=== PATIENT | male | born 1960 | race African-American/Black ===

== ENCOUNTER 2017-04-21 18:13 | Emergency (ER) | payer OTHER ==
[~2017-04-21] VITALS: Ht 175.3 cm; Wt 70.0 kg
[2017-04-21 18:27] VITALS: BP 105/69
== END 2017-04-21 20:30 | disposition left against medical advice (07) ==
LOC: ER 18:13
DX: F10.129 Alcohol abuse with intoxication, unspecified (principal); Z53.21 Procedure and treatment not carried out due to patient leaving prior to being seen by health care provider

== ENCOUNTER 2017-08-15 08:15 | Emergency (ER) | payer OTHER ==
[~2017-08-15] VITALS: Ht 180.3 cm; Wt 86.0 kg
[~2017-08-15 08:15] MED LIST: AMLO10TA80 PO; CLOP75TA16 PO; HYDR25TA PO; LIP40 PO; LOSA100T14 PO
[2017-08-15] MEDS ORDERED: LORAZEPAM 1MG TABLET PO ONE (08:30)
[2017-08-15] MEDS ORDERED: LOSARTAN POTASSIUM 100 MG TABLET PO ONE (08:30)
[2017-08-15] MEDS ORDERED: AMLODIPINE 10MG TABLET PO ONE ×2 (08:30→15:15)
[2017-08-15] MEDS ORDERED: OLANZAPINE 10MG TABLET ODT PO ONE (08:30)
[2017-08-15 09:00] LABS: BASOPHILS % 0.8 % (0.0-2.0); EOSINOPHILS % 0.5 % (0.0-5.0); HEMATOCRIT. 41.2 % (42.0-52.0); HEMOGLOBIN. 14.5 g/dL (14.0-18.0); LYMPHOCYTES % 18.7 % (20.0-50.0); MEAN CORPUSCULAR HEMOGLOBIN 33.5 pg (28.0-32.0); MEAN CORPUSCULAR VOLUME 95.2 fL (80.0-94.0); MEAN PLATELET VOLUME 6.5 fl (7.4-10.4); MONOCYTES % 8.5 % (2.0-8.0); NEUTROPHILS % 71.5 % (40.0-76.0); PLATELET 253 x1000/uL (130-400); RED BLOOD CELL COUNT 4.33 mill/uL (4.7-6.1)
[2017-08-15 09:05] LABS: CHLORIDE 106 mEq/L (98-107)
[2017-08-15 09:08] LABS: ETHANOL BLOOD 25 mg/dL
[2017-08-15 09:49] LABS: *BARBITURATES SCREEN URINE NEGATIVE (NEGATIVE); *BENZODIAZEPINES SCREEN URINE NEGATIVE (NEGATIVE); *COCAINE SCREEN URINE NEGATIVE (NEGATIVE)
[2017-08-15 09:50] LABS: *AMPHETAMINES SCREEN URINE PRESUMTIVE POSITIVE (NEGATIVE); CANNABINOID URINE SCREEN PRESUMTIVE POSITIVE (NEGATIVE); METHADONE URINE SCREEN NEGATIVE (NEGATIVE); OPIATES URINE SCREEN NEGATIVE (NEGATIVE); PHENCYCLIDINE URINE SCREEN NEGATIVE (NEGATIVE)
[2017-08-16] MEDS ORDERED: OLANZAPINE 10 MG/VIAL IM ONE (17:15)
[2017-08-16] MEDS ORDERED: ZIPRASIDONE MESYLATE 20MG/VIAL IM ONE (20:30)
[2017-08-17] MEDS ORDERED: HYDROCHLOROTHIAZIDE 25MG TABLET PO SCH (00:30)
[2017-08-17] MEDS ORDERED: LOSARTAN POTASSIUM 100 MG TABLET PO SCH (00:30)
[2017-08-17] MEDS ORDERED: AMLODIPINE 10MG TABLET PO SCH (00:30)
[2017-08-17] MEDS ORDERED: CLOPIDOGREL 75MG TABLET PO SCH (00:30)
[2017-08-17] MEDS ORDERED: ATORVASTATIN CALCIUM 40MG TABLET PO SCH (21:00)
[2017-08-18 09:41] VITALS: BP 133/90
== END 2017-08-18 11:09 | disposition home or self-care (01) ==
LOC: ER 08:32
DX: F20.9 Schizophrenia, unspecified (principal); I10 Essential (primary) hypertension; F15.10 Other stimulant abuse, uncomplicated; R45.850 Homicidal ideations; F14.10 Cocaine abuse, uncomplicated; F12.10 Cannabis abuse, uncomplicated; Z91.14 Patient's other noncompliance with medication regimen; Z86.73 Personal history of transient ischemic attack (TIA), and cerebral infarction without residual deficits
CPT/HCPCS: 36415; 80048; 80305; 80307; 80329; 85025; 96372; 99285; G0482; J3490; J3486

== ENCOUNTER 2017-11-07 01:30 | Emergency (ER) | payer OTHER ==
[~2017-11-07] VITALS: Ht 172.7 cm; Wt 79.0 kg
[2017-11-07] MEDS: CLOPIDOGREL 75MG TABLET PO SCH (03:00)
[2017-11-07 03:35] LABS: BASOPHILS % 0.9 % (0.0-2.0); EOSINOPHILS % 0.6 % (0.0-5.0); HEMATOCRIT. 45.6 % (42.0-52.0); HEMOGLOBIN. 15.6 g/dL (14.0-18.0); LYMPHOCYTES % 28.7 % (20.0-50.0); MEAN CORPUSCULAR HEMOGLOBIN 32.5 pg (28.0-32.0); MEAN CORPUSCULAR VOLUME 94.8 fL (80.0-94.0); MEAN PLATELET VOLUME 7.4 fl (7.4-10.4); MONOCYTES % 6.1 % (2.0-8.0); NEUTROPHILS % 63.7 % (40.0-76.0); PLATELET 230 x1000/uL (130-400); RED BLOOD CELL COUNT 4.81 mill/uL (4.7-6.1); RED CELL DISTRIBUTION WIDTH 13.5 % (11.6-14.6)
[2017-11-07 03:41] LABS: CHLORIDE 105 mEq/L (98-107); PROTHROMBIN TIME 10.8 sec (9.4-11.6)
[2017-11-07 03:44] LABS: ETHANOL BLOOD 32 mg/dL
[2017-11-07] MEDS ORDERED: SODIUM CHLORIDE 0.9% 1000ML BAG (SEPSIS BOLUS) IV ONE (05:15)
[2017-11-07] MEDS ORDERED: LABETALOL HCL 20MG/4ML CARPUJECT IV ONE (05:15)
[2017-11-07] MEDS ORDERED: LORAZEPAM 2MG/ML CPJ IV ONE (05:30)
[2017-11-07 05:59] LABS: CLARITY URINE CLEAR (CLEAR); COLOR URINE YELLOW (YELLOW); KETONES URINE NEGATIVE (NEGATIVE); LEUKOCYTE ESTERASE URINE NEGATIVE (NEGATIVE); NITRITE URINE NEGATIVE (NEGATIVE); OCCULT BLOOD URINE TRACE (NEGATIVE); PROTEIN URINE 2+ (NEGATIVE); SPECIFIC GRAVITY URINE 1.017 (1.005-1.030); UROBILINOGEN URINE 0.2 E.U./dL (0.2-1.0)
[2017-11-07 06:20] LABS: *AMPHETAMINES SCREEN URINE PRESUMTIVE POSITIVE (NEGATIVE); *BARBITURATES SCREEN URINE NEGATIVE (NEGATIVE); *BENZODIAZEPINES SCREEN URINE NEGATIVE (NEGATIVE); *COCAINE SCREEN URINE PRESUMTIVE POSITIVE (NEGATIVE); METHADONE URINE SCREEN NEGATIVE (NEGATIVE); OPIATES URINE SCREEN NEGATIVE (NEGATIVE)
[2017-11-07 06:21] LABS: CANNABINOID URINE SCREEN PRESUMTIVE POSITIVE (NEGATIVE); PHENCYCLIDINE URINE SCREEN NEGATIVE (NEGATIVE)
[2017-11-07] MEDS: AMLODIPINE 10MG TABLET PO SCH (06:35)
[2017-11-07] MEDS: HYDROCHLOROTHIAZIDE 25MG TABLET PO SCH (06:35)
[2017-11-07] MEDS: LOSARTAN POTASSIUM 100 MG TABLET PO SCH (07:31)
[2017-11-07] MEDS ORDERED: OLANZAPINE 5MG TABLET PO STA (10:31)
[2017-11-08] MEDS: CLOPIDOGREL 75MG TABLET PO SCH (10:02)
[2017-11-08] MEDS: AMLODIPINE 10MG TABLET PO SCH (10:02)
[2017-11-08] MEDS: LOSARTAN POTASSIUM 100 MG TABLET PO SCH (10:06)
[2017-11-08] MEDS: HYDROCHLOROTHIAZIDE 25MG TABLET PO SCH (10:06)
[2017-11-08 10:30] VITALS: BP 112/62
== END 2017-11-08 12:13 | disposition home or self-care (01) ==
LOC: ER 01:30
DX: I16.0 Hypertensive urgency (principal); F14.10 Cocaine abuse, uncomplicated; F15.10 Other stimulant abuse, uncomplicated; F19.10 Other psychoactive substance abuse, uncomplicated; R45.851 Suicidal ideations; F10.10 Alcohol abuse, uncomplicated; F17.200 Nicotine dependence, unspecified, uncomplicated; I10 Essential (primary) hypertension; Y90.1 Blood alcohol level of 20-39 mg/100 ml; Z86.73 Personal history of transient ischemic attack (TIA), and cerebral infarction without residual deficits; Z91.14 Patient's other noncompliance with medication regimen
CPT/HCPCS: 36415; 80053; 80305; 80307; 80329; 81003; 85025; 85610; 93005; 99285; G0482; J2060; J7030; J7040; Z7610

== ENCOUNTER 2018-05-20 09:12 | Emergency (ER) | payer OTHER ==
[~2018-05-20] VITALS: Ht 177.8 cm; Wt 120.0 kg
[2018-05-20] MEDS ORDERED: SODIUM CHLORIDE 0.9% 1,000 ML IV ONE (10:14)
[2018-05-20] MEDS ORDERED: NITROGLYCERIN 0.4MG TABLET SL SL PRN (10:15)
[2018-05-20] MEDS ORDERED: ASPIRIN 81MG TABLET PO ONE (10:15)
[2018-05-20] MEDS ORDERED: LORAZEPAM 2MG/ML CPJ IV ONE (10:15)
[2018-05-20 10:46] LABS: *AMPHETAMINES SCREEN URINE PRESUMTIVE POSITIVE (NEGATIVE); *BARBITURATES SCREEN URINE NEGATIVE (NEGATIVE); *BENZODIAZEPINES SCREEN URINE NEGATIVE (NEGATIVE); *COCAINE SCREEN URINE NEGATIVE (NEGATIVE); METHADONE URINE SCREEN NEGATIVE (NEGATIVE); OPIATES URINE SCREEN NEGATIVE (NEGATIVE)
[2018-05-20 10:47] LABS: CANNABINOID URINE SCREEN PRESUMTIVE POSITIVE (NEGATIVE); PHENCYCLIDINE URINE SCREEN NEGATIVE (NEGATIVE)
[2018-05-20 11:57] LABS: BASOPHILS % 0.6 % (0.0-2.0); EOSINOPHILS % 0.1 % (0.0-5.0); HEMATOCRIT. 44.1 % (42.0-52.0); HEMOGLOBIN. 15.2 g/dL (14.0-18.0); LYMPHOCYTES % 19.2 % (20.0-50.0); MEAN CORPUSCULAR HEMOGLOBIN 33.1 pg (28.0-32.0); MEAN CORPUSCULAR VOLUME 96.1 fL (80.0-94.0); MEAN PLATELET VOLUME 7.8 fl (7.4-10.4); MONOCYTES % 10.2 % (2.0-8.0); NEUTROPHILS % 69.9 % (40.0-76.0); PLATELET 193 x1000/uL (130-400); RED BLOOD CELL COUNT 4.59 mill/uL (4.7-6.1); RED CELL DISTRIBUTION WIDTH 14.7 % (11.6-14.6)
[2018-05-20 12:01] LABS: CHLORIDE 98 mEq/L (98-107)
[2018-05-20 12:05] LABS: ETHANOL BLOOD < 10 mg/dL; PARTIAL THROMBOPLASTIN TIME 29.6 sec (23.4-31.0); PROTHROMBIN TIME 10.1 sec (9.1-11.1)
[2018-05-20] MEDS ORDERED: POTASSIUM CHLORIDE 20MEQ TABLET SR PO ONE (12:30)
[2018-05-20 17:21] VITALS: BP 152/111
== END 2018-05-20 17:35 | disposition short-term general hospital (02) ==
LOC: ER 09:12 → CANBEDREQ 20:45
DX: R07.9 Chest pain, unspecified (principal); E87.6 Hypokalemia; T40.7X5A Adverse effect of cannabis (derivatives), initial encounter; Y92.9 Unspecified place or not applicable; F17.200 Nicotine dependence, unspecified, uncomplicated; I10 Essential (primary) hypertension; Z86.73 Personal history of transient ischemic attack (TIA), and cerebral infarction without residual deficits
CPT/HCPCS: 36415; 71045; 80053; 80305; 83735; 83880; 84484; 85025; 85610; 85730; 93005; 96374; 99285; G0482; J2060; J7030

== ENCOUNTER 2018-08-27 17:32 | Emergency (ER) | payer OTHER ==
[~2018-08-27] VITALS: Ht 175.3 cm; Wt 120.0 kg
[2018-08-27 18:28] LABS: BASOPHILS % 0.9 % (0.0-2.0); EOSINOPHILS % 0.3 % (0.0-5.0); HEMATOCRIT. 42.7 % (42.0-52.0); HEMOGLOBIN. 14.8 g/dL (14.0-18.0); LYMPHOCYTES % 26.7 % (20.0-50.0); MEAN CORPUSCULAR HEMOGLOBIN 33.3 pg (28.0-32.0); MEAN CORPUSCULAR VOLUME 96.2 fL (80.0-94.0); MEAN PLATELET VOLUME 6.3 fl (7.4-10.4); MONOCYTES % 8.6 % (2.0-8.0); NEUTROPHILS % 63.5 % (40.0-76.0); PLATELET 265 x1000/uL (130-400); RED BLOOD CELL COUNT 4.44 mill/uL (4.7-6.1)
[2018-08-27 18:34] LABS: CHLORIDE 107 mEq/L (98-107)
[2018-08-27 18:38] LABS: ETHANOL BLOOD 91 mg/dL
[2018-08-27 19:21] LABS: CLARITY URINE CLEAR (CLEAR); COLOR URINE YELLOW (YELLOW); KETONES URINE NEGATIVE (NEGATIVE); LEUKOCYTE ESTERASE URINE NEGATIVE (NEGATIVE); NITRITE URINE NEGATIVE (NEGATIVE); OCCULT BLOOD URINE 1+ (NEGATIVE); PROTEIN URINE NEGATIVE (NEGATIVE); SPECIFIC GRAVITY URINE 1.008 (1.005-1.030); UROBILINOGEN URINE 0.2 E.U./dL (0.2-1.0)
[2018-08-27 19:34] LABS: *COCAINE SCREEN URINE NEGATIVE (NEGATIVE); METHADONE URINE SCREEN NEGATIVE (NEGATIVE); OPIATES URINE SCREEN NEGATIVE (NEGATIVE); PHENCYCLIDINE URINE SCREEN NEGATIVE (NEGATIVE)
[2018-08-27 19:35] LABS: *AMPHETAMINES SCREEN URINE PRESUMTIVE POSITIVE (NEGATIVE); *BARBITURATES SCREEN URINE NEGATIVE (NEGATIVE); *BENZODIAZEPINES SCREEN URINE NEGATIVE (NEGATIVE); CANNABINOID URINE SCREEN PRESUMTIVE POSITIVE (NEGATIVE)
[2018-08-27] MEDS ORDERED: CLONIDINE 0.2MG TABLET PO ONE (20:45)
[2018-08-27] MEDS ORDERED: AMLODIPINE 10MG TABLET PO ONE (20:45)
[2018-08-27] MEDS ORDERED: HALOPERIDOL LACTATE 5MG/ML VIAL IM ONE (23:15)
[2018-08-28 10:00] VITALS: BP 131/80
== END 2018-08-28 10:19 | disposition home or self-care (01) ==
LOC: ER 17:32
DX: R45.851 Suicidal ideations (principal); F41.9 Anxiety disorder, unspecified; F31.9 Bipolar disorder, unspecified; I10 Essential (primary) hypertension; F20.9 Schizophrenia, unspecified; F17.200 Nicotine dependence, unspecified, uncomplicated; F12.10 Cannabis abuse, uncomplicated; Z79.899 Other long term (current) drug therapy
CPT/HCPCS: 36415; 80053; 80305; 80320; 81003; 85025; 96372; 99284; J1630; Z7610; 99291; G0480

== ENCOUNTER 2018-10-02 20:53 | Emergency (ER) | payer OTHER ==
[~2018-10-02] VITALS: Ht 180.3 cm; Wt 114.0 kg
[2018-10-02 22:26] LABS: BASOPHILS % 0.4 % (0.0-2.0); HEMATOCRIT. 40.3 % (42.0-52.0); HEMOGLOBIN. 14.2 g/dL (14.0-18.0); LYMPHOCYTES % 8.9 % (20.0-50.0); MEAN CORPUSCULAR VOLUME 96.3 fL (80.0-94.0); MEAN PLATELET VOLUME 6.8 fl (7.4-10.4); NEUTROPHILS % 85.7 % (40.0-76.0); PLATELET 299 x1000/uL (130-400); RED BLOOD CELL COUNT 4.19 mill/uL (4.7-6.1); RED CELL DISTRIBUTION WIDTH 13.3 % (11.6-14.6)
[2018-10-02 22:28] LABS: CHLORIDE 98 mEq/L (98-107)
[2018-10-02] MEDS ORDERED: ASPIRIN 81MG TABLET PO ONE (23:00)
[2018-10-02 23:25] VITALS: BP 159/107
== END 2018-10-02 23:28 | disposition home or self-care (01) ==
LOC: ER 22:53
DX: I12.0 Hypertensive chronic kidney disease with stage 5 chronic kidney disease or end stage renal disease (principal); N18.6 End stage renal disease; N17.9 Acute kidney failure, unspecified; I50.9 Heart failure, unspecified; E87.6 Hypokalemia; F14.10 Cocaine abuse, uncomplicated; F10.10 Alcohol abuse, uncomplicated; F41.9 Anxiety disorder, unspecified; F32.9 Major depressive disorder, single episode, unspecified; F20.9 Schizophrenia, unspecified; Z86.73 Personal history of transient ischemic attack (TIA), and cerebral infarction without residual deficits; F12.10 Cannabis abuse, uncomplicated; F17.200 Nicotine dependence, unspecified, uncomplicated; Z79.899 Other long term (current) drug therapy
CPT/HCPCS: 36415; 71045; 83880; 84484; 93005; 99284

== ENCOUNTER 2018-12-08 04:02 | Emergency (ER) | payer OTHER ==
[~2018-12-08] VITALS: Ht 177.8 cm; Wt 95.0 kg
[~2018-12-08 04:02] MED LIST changes: -CLOP75TA16 PO; +CLOP75TA4 PO; -LOSA100T14 PO; +LOSA100T32 PO
[2018-12-08] MEDS ORDERED: NITROGLYCERIN 0.4MG TABLET SL SL PRN (06:30)
[2018-12-08 08:02] LABS: CLARITY URINE CLEAR (CLEAR); COLOR URINE YELLOW (YELLOW); KETONES URINE NEGATIVE (NEGATIVE); LEUKOCYTE ESTERASE URINE NEGATIVE (NEGATIVE); NITRITE URINE NEGATIVE (NEGATIVE); OCCULT BLOOD URINE TRACE (NEGATIVE); PH URINE 5.5 (4.5-8.0); PROTEIN URINE NEGATIVE (NEGATIVE); SPECIFIC GRAVITY URINE 1.004 (1.005-1.030); UROBILINOGEN URINE 0.2 E.U./dL (0.2-1.0)
[2018-12-08 08:06] LABS: BASOPHILS % 1.5 % (0.0-2.0); EOSINOPHILS % 1.5 % (0.0-5.0); HEMATOCRIT. 39.5 % (42.0-52.0); HEMOGLOBIN. 13.9 g/dL (14.0-18.0); LYMPHOCYTES % 31.3 % (20.0-50.0); MEAN CORPUSCULAR HEMOGLOBIN 34.1 pg (28.0-32.0); MEAN CORPUSCULAR VOLUME 96.5 fL (80.0-94.0); MEAN PLATELET VOLUME 7.2 fl (7.4-10.4); MONOCYTES % 8.5 % (2.0-8.0); NEUTROPHILS % 57.2 % (40.0-76.0); PLATELET 238 x1000/uL (130-400); RED BLOOD CELL COUNT 4.09 mill/uL (4.7-6.1); RED CELL DISTRIBUTION WIDTH 13.9 % (11.6-14.6)
[2018-12-08 08:11] LABS: CHLORIDE 103 mEq/L (98-107)
[2018-12-08 08:16] LABS: ETHANOL BLOOD < 10 mg/dL
[2018-12-08 08:37] LABS: *AMPHETAMINES SCREEN URINE NEGATIVE (NEGATIVE); *BARBITURATES SCREEN URINE NEGATIVE (NEGATIVE); *BENZODIAZEPINES SCREEN URINE NEGATIVE (NEGATIVE); *COCAINE SCREEN URINE PRESUMTIVE POSITIVE (NEGATIVE); METHADONE URINE SCREEN NEGATIVE (NEGATIVE)
[2018-12-08 08:38] LABS: CANNABINOID URINE SCREEN PRESUMTIVE POSITIVE (NEGATIVE); OPIATES URINE SCREEN NEGATIVE (NEGATIVE); PHENCYCLIDINE URINE SCREEN NEGATIVE (NEGATIVE)
[2018-12-08 11:30] VITALS: BP 130/92
== END 2018-12-08 13:32 | disposition left against medical advice (07) ==
LOC: ER 04:02
DX: R07.2 Precordial pain (principal); R06.02 Shortness of breath; I10 Essential (primary) hypertension; F17.210 Nicotine dependence, cigarettes, uncomplicated; Z79.899 Other long term (current) drug therapy; Z86.73 Personal history of transient ischemic attack (TIA), and cerebral infarction without residual deficits
CPT/HCPCS: 36415; 71045; 80305; 80320; 83880; 84484; 93005; 99284; G0480

== ENCOUNTER 2019-12-10 21:38 | Emergency (ER) | payer OTHER ==
[~2019-12-10] VITALS: Ht 177.8 cm; Wt 100.0 kg
[2019-12-10 22:43] LABS: BASOPHILS % 1.1 % (0.0-2.0); EOSINOPHILS % 0.2 % (0.0-5.0); HEMATOCRIT. 46.4 % (42.0-52.0); LYMPHOCYTES % 21.2 % (20.0-50.0); MEAN CORPUSCULAR HEMOGLOBIN 34.2 pg (28.0-32.0); MEAN CORPUSCULAR VOLUME 99.5 fL (80.0-94.0); MEAN PLATELET VOLUME 6.8 fl (7.4-10.4); NEUTROPHILS % 67.5 % (40.0-76.0); PLATELET 237 x1000/uL (130-400); RED BLOOD CELL COUNT 4.66 mill/uL (4.7-6.1); RED CELL DISTRIBUTION WIDTH 13.6 % (11.6-14.6)
[2019-12-10 22:45] LABS: CHLORIDE 104 mEq/L (98-107)
[2019-12-10 22:51] LABS: ETHANOL BLOOD < 10 mg/dL
[2019-12-10] MEDS ORDERED: LORAZEPAM 1MG TABLET PO ONE (23:30)
[2019-12-10] MEDS: QUETIAPINE FUMARATE 50MG TABLET PO SCH (23:59)
[2019-12-11] MEDS ORDERED: LORAZEPAM 2MG/ML CPJ IM ONE (00:15)
[2019-12-11] MEDS ORDERED: HALOPERIDOL LACTATE 5MG/ML VIAL IM ONE (00:15)
[2019-12-11] MEDS: QUETIAPINE FUMARATE 50MG TABLET PO SCH (09:00)
[2019-12-11 15:03] LABS: CLARITY URINE CLEAR (CLEAR); COLOR URINE DARK YELLOW (YELLOW); KETONES URINE NEGATIVE (NEGATIVE); LEUKOCYTE ESTERASE URINE NEGATIVE (NEGATIVE); NITRITE URINE NEGATIVE (NEGATIVE); OCCULT BLOOD URINE TRACE (NEGATIVE); PROTEIN URINE 2+ (NEGATIVE); SPECIFIC GRAVITY URINE 1.034 (1.005-1.030)
[2019-12-11 15:28] LABS: *AMPHETAMINES SCREEN URINE PRESUMTIVE POSITIVE (NEGATIVE); *BARBITURATES SCREEN URINE NEGATIVE (NEGATIVE); *BENZODIAZEPINES SCREEN URINE NEGATIVE (NEGATIVE); *COCAINE SCREEN URINE PRESUMTIVE POSITIVE (NEGATIVE); CANNABINOID URINE SCREEN PRESUMTIVE POSITIVE (NEGATIVE)
[2019-12-11 15:29] LABS: METHADONE URINE SCREEN NEGATIVE (NEGATIVE); OPIATES URINE SCREEN NEGATIVE (NEGATIVE); PHENCYCLIDINE URINE SCREEN NEGATIVE (NEGATIVE)
[2019-12-11 21:25] VITALS: BP 135/86
== END 2019-12-11 23:54 | disposition home or self-care (01) ==
LOC: ER 21:38
DX: R45.851 Suicidal ideations (principal); N28.9 Disorder of kidney and ureter, unspecified; I10 Essential (primary) hypertension; F20.9 Schizophrenia, unspecified; Z86.73 Personal history of transient ischemic attack (TIA), and cerebral infarction without residual deficits
CPT/HCPCS: 36415; 80053; 80305; 80307; 80320; 80329; 81003; 85025; 93005; 96372; 99285; J1630; J2060; G0480